=== PATIENT | female | born 1980 | race Caucasian/White ===

== ENCOUNTER → 2018-02-23 16:12 | Outpatient (CLI) | payer OTHER, SELFPAY | PROVIDERS: Visit Provider Obstetrics & Gynecology | DX: Z34.82 Encounter for supervision of other normal pregnancy, second trimester (principal) | CPT/HCPCS: 82105 ==

== ENCOUNTER → 2018-03-01 11:14 | Outpatient (CLI) | payer OTHER, SELFPAY | PROVIDERS: PCP Obstetrics & Gynecology; Visit Provider Obstetrics & Gynecology | DX: O09.522 Supervision of elderly multigravida, second trimester (principal) | CPT/HCPCS: 82105 ==

== ENCOUNTER → 2018-03-16 10:05 | Outpatient (CLI) | payer OTHER, SELFPAY ==
--- NOTE | 2018-03-16 10:07 | DI.US.S_ITS ---
PROCEDURE: US OB >= 14 WEEKS FETUS INDICATIONS: 37 year-old female. Assess growth and anatomy. OUTSIDE/PRIOR DATING DATA: Last menstrual period (LMP): 10/22/17. LMP-based estimated date of delivery (KAREN): 07/29/18. First dating scan (date and location): 12/29/17 at [facility]. Estimated date of delivery (KAREN) from first dating scan: 07/28/18. TECHNIQUE: Real-time scanning was performed of the fetus, with image documentation and biometric measurements. Endovaginal scanning: No COMPARISON: [facility], OB COMPLETE LESS THAN 14 WKS, 01/26/2018, 14:27. [facility], OB COMPLETE LESS THAN 14 WKS, 12/29/2017, 13:56. [facility], OB >= 14 WEEKS FETUS, 02/23/2018, 16:09. FINDINGS: General: A single living intrauterine gestation is present. Presentation: Vertex. Placenta: Placental position is posterior, without previa. Amniotic fluid index: 9.3 cm, normal range is 5-24 cm. heart rate: 152 beats per minute. Maternal cervical canal: 3.4 cm long. biometrics: Biparietal diameter: 5.1 cm equals 21 weeks 3 days. Head circumference: 18.7 cm equals 21 weeks zero days. Abdominal circumference: 16.7 cm equals 21 weeks 5 days. Femur length: 3.5 cm equals 21 weeks zero days. Estimated gestational age from initial scan: 20 weeks 6 days Composite gestational age from present scan: 21 weeks zero days. Estimated weight and percentile: 419 g, 73rd percentile Measurement variability for biometric dating: +/- 7 days from 14 weeks to 15 weeks 6 days gestation, +/- 10 days from 16 weeks to 21 weeks 6 days gestation, +/- 2 weeks from 22 weeks to 27 weeks 6 days gestation, +/- 3 weeks for 28 weeks gestation or later. weight reference: 4500 g or EFW >90/95% is considered macrosomia or large for gestational age. EFW <10% is small for gestational age. EFW 5% or less is considered intra-uterine growth restriction. Anatomic survey: Neuro: Ventricles are non-dilated at less than 10 mm. Cisterna magna is normal at 3-11 mm. Cerebellum is normal in size and morphology. Nuchal skin fold: Normal at less than 6 mm between 14-21 weeks gestational age. Face: Facial profile not well-seen otherwise normal phase. Spine: Not well-seen. Heart: Not well-seen. Diaphragm: Diaphragm is intact. Stomach: Left-sided stomach is present. Kidneys: No hydronephrosis. Normal is less than 5 mm in 2nd trimester, less than 7 mm in 3rd trimester. Cord: 3-vessel cord has orthotopic insertion. Bladder: Normal in size. Extremities: All 4 extremities identified. IMPRESSION: 1. Single living intrauterine gestation demonstrates appropriate interval growth. Estimated weight is at the 73rd percentile. 2. facial structures, spine, and cardiac structures are not well seen due to lie. Otherwise, normal anatomic survey. Dictated by: Tevin WHELAN Interpreted: Fernando Samuel MD on 03/16/2018 at 11:58 Approved by: Luis Manuel Rodriguez M.D. on 03/19/2018 at 10:16
== END ==
PROVIDERS: PCP Obstetrics & Gynecology; Visit Provider Obstetrics & Gynecology
DX: Z36.89 Encounter for other specified antenatal screening (principal); Z3A.20 20 weeks gestation of pregnancy
CPT/HCPCS: 76811

== ENCOUNTER → 2018-05-22 13:57 | Outpatient (CLI) | payer OTHER, SELFPAY ==
[2018-05-22 17:17] LABS: Hemoglobin 12.7 g/dL (12.0-16.0)
[2018-05-22 18:23] LABS: GTT (PREG) 1 Hour PP 50gm Dose 197 mg/dL (76-139)
== END ==
PROVIDERS: PCP Obstetrics & Gynecology; Visit Provider Obstetrics & Gynecology
DX: Z3A.21 21 weeks gestation of pregnancy (principal)
CPT/HCPCS: 36415; 82950; 85014; 85018

== ENCOUNTER → 2018-06-01 07:18 | Outpatient (CLI) | payer OTHER, SELFPAY ==
[2018-06-01 08:22] LABS: Glucose Fasting Gestational 102 mg/dL (76-95)
[2018-06-01 11:17] LABS: Glucose 2 Hour Gest 178 mg/dL (76-155)
[2018-06-01 14:39] LABS: Glucose Tol Interp,Gestational INTERPRETATION
[2018-06-01 14:49] LABS: Glucose 1 Hour Gest 194 mg/dL (76-180)
[2018-06-01 14:50] LABS: Glucose 3 Hour Gest 108 mg/dL (76-140)
== END ==
PROVIDERS: PCP Obstetrics & Gynecology; Visit Provider Obstetrics & Gynecology
DX: O99.810 Abnormal glucose complicating pregnancy (principal)
CPT/HCPCS: 82951; 82952

== ENCOUNTER 2018-07-23 05:30 | Inpatient (IN) | payer OTHER, SELFPAY ==
--- NOTE | 2018-07-23 | PATH_ITS ---
[facility] Accession Number: [id number] . 01 Material submitted: . BILATERAL FALLOPIAN TUBES SEGMENTS . 02 Diagnosis: Segments of Bilateral Fallopian Tubes (Sterilization Procedure): No significant pathologic change. V/07/25/2018 . 02 Electronically signed: . Jose Limon MD, Pathologist NPI- [id number] . 01 Gross description: . Received one formalin-filled container labeled with the patient's name and labeled bilateral fallopian tube segments. The specimen consists of two cylindrical-shaped portions of tissue. The first measures 0.5 cm in diameter by 0.5 cm in length; inked blue, trisected, and entirely submitted in cassette A1. The second piece, which is extremely rough and friable, measures 0.4 cm in diameter by 0.5 cm in length; inked blue, bisected, and entirely submitted in cassette A2. ([id number]) /FRR . 02 Pathologist provided ICD-10: Z30.2 . 02 CPT . 620986 Specimen Comment: A duplicate report has been generated due to demographic updates. Performed at: 01 [facility] [address] [place] [address], [place], [place] [id number] MD Arnold Gutierrez MD Phone: [phone] Performed at: [facility] [address] [place], [place] [id number] MD Vicente Rabago MD Phone: [phone]
[2018-07-23 06:47] VITALS: BP 133/78
[2018-07-23 07:58] LABS: Add Manual Diff / Slide Review NO; Basophils Percent Auto 0.4 % (0-2); Eosinophils Percent Auto 1.5 % (2-4); Hematocrit 39.5 % (36-46); Hemoglobin 13.3 g/dL (12.0-16.0); Mean Corpuscular HGB Conc 33.7 % (30-36); Mean Corpuscular Hemoglobin 29.7 PG (26-34); Mean Corpuscular Volume 88.2 fL (80-100); Neutrophils Absolute Auto 12100 /uL (3000-5900); Neutrophils Percent Auto 78.1 % (50-75); Platelet Count 278 X10^3/uL (150-400); Red Blood Cell Count 4.48 X10^6/uL (4.0-5.2); White Blood Cell Count 15.5 X10^3/uL (4.5-11.0)
--- NOTE | 2018-07-23 08:05 | PM.PREOP ---
Pre-operative Note Interval Note Pre-op Check: Yes History & Physical Reviewed by Physician Changes: No
[2018-07-23] MEDS: CEFAZOLIN 2 GM/100 ML FROZ.PIGGY IV (08:15)
--- NOTE | 2018-07-23 08:31 | SUR.OPER ---
Supine on Padded OR bed, head on pillow, safety belt at thigh, arms secured on padded arm boards at <90 degrees abduction. Bump under right buttock. Legs uncrossed with pillow under knees, gel pad to heels, tape over blanket to lower legs.
[2018-07-23] MEDS: LACTATED RINGERS 1,000 ML 100 ML IV ×3 (08:45→10:30)
--- NOTE | 2018-07-23 08:46 | SUR.OPER ---
TOB live male at 0845. Cord blood x 2 and placenta to L&D with OB Rn.
[2018-07-23 09:42] VITALS: BP 101/57; BP 103/66; PULSE 88; PULSE 92; RESP 11; RESP 16; TEMP 36.3; O2SAT 96; O2SAT 97
[2018-07-23 09:47] VITALS: BP 104/68; PULSE 87; RESP 12; O2SAT 98
--- NOTE | 2018-07-23 09:51 | SUR.PHASEI ---
Report called to Rachael. VS stable. Pt denied nausea or pain.
[2018-07-23 09:53] VITALS: BP 102/69; PULSE 81; RESP 9; TEMP 36.1; O2SAT 99
--- NOTE | 2018-07-23 10:07 | SUR.PHASEI ---
Pt transferred to center. VS stable. Drsg cdi, Fundus at U per Rachael. IV patent.
[2018-07-23] MEDS: KETOROLAC 30 MG/ML VIAL IV ×2 (13:35→19:37)
[2018-07-23] MEDS: OXYCODONE/ACETAMINOPHEN 5/325 TABLET 2 TAB PO (19:42)
[2018-07-24] MEDS: KETOROLAC 30 MG/ML VIAL IV (00:59)
[2018-07-24] MEDS: OXYCODONE/ACETAMINOPHEN 5/325 TABLET 2 TAB PO ×3 (06:03→23:05)
[2018-07-24 07:02] LABS: Hematocrit 33.7 % (36-46); Hemoglobin 11.2 g/dL (12.0-16.0)
[2018-07-24] MEDS: IBUPROFEN 600 MG TABLET PO ×3 (08:52→23:05)
[2018-07-24] MEDS: DOCUSATE 250 MG CAPSULE PO (08:53)
[2018-07-25] MEDS: OXYCODONE/ACETAMINOPHEN 5/325 TABLET 2 TAB PO (08:23)
[2018-07-25] MEDS: DOCUSATE 250 MG CAPSULE PO (08:24)
[2018-07-25] MEDS: IBUPROFEN 600 MG TABLET PO (08:26)
[2018-07-25 09:17] VITALS: BP 138/44; PULSE 101; RESP 17; TEMP 36.7
--- NOTE | 2018-09-14 12:09 | PM.GYNOP.1 ---
Operative Date/Time/Diagnoses Date of procedure: 07/23/18 Time of procedure: 09:30 Pre-op diagnosis: Intrauterine at 39 weeks gestation Previous section Desires permanent sterilization Post-op diagnosis: same Procedure: Procedures Operation Date: 07/23/18 07:45 Actual Procedures Side Surgeon p Repeat Section with Bilateral Tubal Ligation Mary Whitt MD Indications: 39 weeks gestation Previous section Desires permanent sterilization Surgeon: Mary Whitt Cashier Host/Hostess: Michelle Alba Anesthesia Type: Spinal Operative Notes Findings: Live male Normal uterus tubes and ovaries Closure Type: primary Specimen(s): portion of left tube, portion of right tube and other (Cord bloods, placenta) Applied: catheter Estimated blood loss (mL): 500 Blood products transfused: none Procedure in detail: The patient was taken to the operating room where she was placed in the seated position. Spinal anesthesia with Duramorph was administered. The patient was then placed in the dorsal supine position with a leftward tilt. She was prepped and draped in the usual sterile fashion. A timeout was performed. After spinal analgesia was found to be adequate, a Pfannenstiel skin incision was made through the previous incision and carried through to the underlying layer fascia. The fascia was nicked in the midline, and the incision extended bilaterally with the Laguerre scissors. The superior aspect of the fascial incision was grasped with a Dimitri clamps, elevated, and the underlying rectus muscles dissected off sharply and bluntly. Attention was then turned to the inferior aspect of this incision which in a similar fashion was grasped with a Dimitri clamps, elevated, and the underlying rectus muscles dissected off sharply and bluntly. The rectus muscles were in the midline. The peritoneum was identified, grasped between 2 hemostats, and entered sharply with the Metzenbaum scissors. This incision was extended superiorly and inferiorly with good visualization of the bladder. The bladder blade was inserted. The vesicouterine peritoneum was identified, grasped with the pickup, and entered sharply with the Metzenbaum scissors. This incision was extended bilaterally, and the bladder flap was created digitally. The bladder blade was reinserted. The lower uterine segment was incised in a transverse fashion with the scalpel. Upon entering the amniotic sac there was moderate amount of clear amniotic fluid. The infant's head was delivered without difficulty. The nose and mouth were suctioned with bulb suction. The remainder of the body delivered without difficulty. The cord was double clamped and cut. The was handed off to waiting RN and RT. The placenta was delivered manually. The uterus was cleared of all clots and debris. The uterine incision was repaired with #1 chromic in a running interlocking fashion, and a second layer the same suture was used for an imbricating layer. Hemostasis was achieved. The tubes and ovaries were examined and were found to be normal. The right tube was grasped with a Kathi and carried out to the fimbriated end. Two [address] way to the distal limb a 3 cm segment of tube was ligated with oh plain chromic x-2. A 1 cm segment of tube was excised. This was repeated on the patient's left tube. Hemostasis was achieved. The gutters were cleared of all clots and debris. The bladder flap was reapproximated using 2-0 Vicryl in a running fashion. The parietal peritoneum was closed using 2-0 Vicryl in a running fashion. The fascia was reapproximated using 0 Vicryl in a running fashion. The subcutaneous layer was copiously irrigated with warm normal saline. 5 simple interrupted sutures of 3-0 Vicryl were placed in 2 layers to reapproximate the subcutaneous layer. The skin was closed with 4-0 undyed Vicryl in a subcuticular fashion. Steri-Strips were placed. An Aquacell dressing was placed. The uterus was expressed of a small amount of old blood. Sponge, lap, and instrument counts were correct x-2. The patient tolerated the procedure well, and was taken to PACU in stable condition. Complications: none Post-operative Condition: stable Disposition: PACU Plan for aftercare: To Center after recovery
--- NOTE | 2018-09-14 12:12 | P.OP_ITS ---
Operative Date/Time/Diagnoses Date of procedure: 07/23/18 Time of procedure: 09:30 Pre-op diagnosis: Intrauterine at 39 weeks gestation Previous section Desires permanent sterilization Post-op diagnosis: same Procedure: Procedures Operation Date: 07/23/18 07:45 Actual Procedures Side Surgeon p Repeat Section with Bilateral Tubal Ligation Mary Whitt MD Indications: 39 weeks gestation Previous section Desires permanent sterilization Surgeon: Mary Whitt Victim Witness Administrator: Michelle Alba Anesthesia Type: Spinal Operative Notes Findings: Live male Normal uterus tubes and ovaries Closure Type: primary Specimen(s): portion of left tube, portion of right tube and other (Cord bloods , placenta) Applied: catheter Estimated blood loss (mL): 500 Blood products transfused: none Procedure in detail: The patient was taken to the operating room where she was placed in the seated position. Spinal anesthesia with Duramorph was administered. The patient was then placed in the dorsal supine position with a leftward tilt. She was prepped and draped in the usual sterile fashion. A timeout was performed. After spinal analgesia was found to be adequate, a Pfannenstiel skin incision was made through the previous incision and carried through to the underlying layer fascia. The fascia was nicked in the midline, and the incision extended bilaterally with the Laguerre scissors. The superior aspect of the fascial incision was grasped with a Dimitri clamps, elevated, and the underlying rectus muscles dissected off sharply and bluntly. Attention was then turned to the inferior aspect of this incision which in a similar fashion was grasped with a Dimitri clamps, elevated, and the underlying rectus muscles dissected off sharply and bluntly. The rectus muscles were in the midline. The peritoneum was identified, grasped between 2 hemostats, and entered sharply with the Metzenbaum scissors. This incision was extended superiorly and inferiorly with good visualization of the bladder. The bladder blade was inserted. The vesicouterine peritoneum was identified, grasped with the pickup, and entered sharply with the Metzenbaum scissors. This incision was extended bilaterally, and the bladder flap was created digitally. The bladder blade was reinserted. The lower uterine segment was incised in a transverse fashion with the scalpel. Upon entering the amniotic sac there was moderate amount of clear amniotic fluid. The infant's head was delivered without difficulty. The nose and mouth were suctioned with bulb suction. The remainder of the body delivered without difficulty. The cord was double clamped and cut. The was handed off to waiting RN and RT. The placenta was delivered manually. The uterus was cleared of all clots and debris. The uterine incision was repaired with #1 chromic in a running interlocking fashion , and a second layer the same suture was used for an imbricating layer. Hemostasis was achieved. The tubes and ovaries were examined and were found to be normal. The right tube was grasped with a Kathi and carried out to the fimbriated end. Two [address] way to the distal limb a 3 cm segment of tube was ligated with oh plain chromic x-2. A 1 cm segment of tube was excised. This was repeated on the patient's left tube. Hemostasis was achieved. The gutters were cleared of all clots and debris. The bladder flap was reapproximated using 2-0 Vicryl in a running fashion. The parietal peritoneum was closed using 2-0 Vicryl in a running fashion. The fascia was reapproximated using 0 Vicryl in a running fashion. The subcutaneous layer was copiously irrigated with warm normal saline. 5 simple interrupted sutures of 3- 0 Vicryl were placed in 2 layers to reapproximate the subcutaneous layer. The skin was closed with 4-0 undyed Vicryl in a subcuticular fashion. Steri-Strips were placed. An Aquacell dressing was placed. The uterus was expressed of a small amount of old blood. Sponge, lap, and instrument counts were correct x- 2. The patient tolerated the procedure well, and was taken to PACU in stable condition. Complications: none Post-operative Condition: stable Disposition: PACU Plan for aftercare: To Center after recovery
--- NOTE | 2018-09-24 12:28 | PM.DS.1 ---
History of Present Illness Date Patient Seen: 07/25/18 Time Patient Seen: 13:30 Chief complaint: [id number] REPEAT W/BTL Narrative: Patient is a 38-year-old 2 para 2 who presented on 07/23/2018 for a scheduled repeat section and bilateral tubal ligation. She underwent these procedures without complication. Her postoperative course was unremarkable and she was discharged home on 07/25/2018. She is to follow up at 1 week for an Aquacel dressing removal. Discharge Providers Date of admission: 07/23/18 05:30 Primary care physician: Mary Whitt MD Consults: 07/23/18 13:31 Consult to Line Technician Routine Comment: Discharge provider: Mary Whitt MD Discharge Date: 07/25/18 Summary Discharge Diagnosis: 39 weeks gestation Previous section Desires permanent sterilization Repeat section Bilateral tubal ligation Hospital Course: Patient is a 38-year-old 2 para 2 who presented on 07/23/2018 for a scheduled repeat section and bilateral tubal ligation. Patient had had 1 prior section. She underwent a repeat section and bilateral tubal ligation without complication. Her postoperative course was unremarkable and on postop day # 2 she was tolerating a diet, ambulating, pain well controlled, voiding without the catheter. She was discharged home to follow up at 1 week for Aquacel dressing removal Status at Discharge Functional status at discharge: independent ambulation Overall status at discharge: patient is progressing back to baseline Time Spent with Patient Less than 30 minutes Exam Vital Signs (past 8 hours): Oxygen Delivery Method Room Air Narrative Exam Narrative: Generally: Patient is sitting up in bed, no acute distress Lungs: Clear to auscultation bilaterally Cardiovascular: Regular rate and rhythm Fundal height: U -1 Incision: Clean dry and intact with Aquacel dressing Abdomen: Good bowel sounds Extremities: Trace edema, negative Homans Objective Labs Result Diagrams: 07/24/18 06:15 Discharge Plan Discharge Plan Patient Disposition: Home Discharge comment: Call with fever, chills, redness or drainage around incision or bleeding vaginally more than a pad in an hour Discharge Med Rec/Prescriptions Prescriptions: No Action blood-glucose meter [Blood Glucose Monitoring] kit .ROUTE .MEDSUPPLY Qty: 1 RF: 0 blood sugar diagnostic [Blood Glucose Test] strip .ROUTE .MEDSUPPLY Qty: 120 RF: 3 lancets misc .ROUTE .MEDSUPPLY Qty: 120 RF: 3 Follow up/Referrals: Mary Whitt MD [Primary Care Provider] - 1 Week (Monday,July at 3:15pm. Clinic, Monday,July at 12:00 noon.) Provider Discharge Instructions Diet: Diet as Tolerated Activity: No heavy lifting No intercourse Skin/Wound/Dressing Care Report to your healthcare provider any signs of infection, such as:: chills, fever, increased pain and unusual drainage Dressing: Do not remove Visit Report/Discharge Packet Instructions: DI for Visit Report Forms: Stroke Signs & Symptoms Discharge Data Primary Care Provider: Mary Whitt Attending Provider: Mary Whitt Admit Date/Time: 07/23/18 05:30 Discharges patient from system. Discharge Date/Time: 07/25/18 11:03
--- NOTE | 2018-10-26 09:13 | P.PNOB_ITS ---
Subjective - OB Interval history: Patient is a 38-year-old 2 para 2 postop day # 1 status post repeat low-transverse section and bilateral tubal ligation Patient comments: no complaints, pain well controlled and tolerating diet [place] baby status: doing well feeding status: exclusively breast feeding Date Patient Seen: 09/15/18 Time Patient Seen: 09:30 Exam Vital Signs (past 8 hours): Oxygen Delivery Method Room Air Narrative Exam Narrative: Generally: Patient is sitting up in bed, holding infant, no acute distress Lungs: Clear to auscultation bilaterally Cardiovascular: Regular rate and rhythm Fundus: Firm at U -1 Incision: Clean dry and intact with Aquacel dressing Extremities: Negative Homans, no edema Objective Labs Result Diagrams: 07/24/18 06:15 Assessment & Plan (1) Status post repeat low transverse section: Status: Acute Current Visit: No (2) History of bilateral tubal ligation: Status: Acute Assessment and plan: Assessment: Postop day # 1 status post repeat low-transverse section and bilateral tubal ligation doing very well Plan: Continue routine postop care Anticipate discharge 09/16/2018 Current Visit: No Plan day: 1 plan OB: routine postop care Time Spent With Patient Total time spent is greater than 50% in coordination of care (as documented) at patient's floor/unit and/or counseling patient: less than 15 minutes
== END 2018-07-25 11:03 | disposition home or self-care (01) | DRG 785 ==
PROVIDERS: Admitting Provider Obstetrics & Gynecology; PCP Obstetrics & Gynecology; Visit Provider Obstetrics & Gynecology
PROC: 10D00Z1 Extraction of Products of Conception, Low, Open Approach (ICD-10-PCS; CPT 59514; principal; 2018-07-23 07:45)
DX: O34.219 Maternal care for unspecified type scar from previous cesarean delivery (principal); Z3A.39 39 weeks gestation of pregnancy; Z37.0 Single live birth; Z30.2 Encounter for sterilization; O99.214 Obesity complicating childbirth
CPT/HCPCS: 36415; 58611; 59050; 59510; 59514; 85014; 85018; 85025; 86850; 86900; 86901; J0690; J1100; J1885; J2274; J2405; J2590